=== PATIENT | female | born 1960 | race American Indian/Alaskan Native ===

== ENCOUNTER → 2018-06-30 | Outpatient (CLI) | payer OTHER | LOC: CIMAGING 11:07 | PROVIDERS: ATTEND Family Medicine | DX: Z12.31 Encounter for screening mammogram for malignant neoplasm of breast (principal) ==

== ENCOUNTER → 2018-11-19 | Outpatient (CLI) | payer OTHER | END | disposition home or self-care (01) | LOC: FIMAGING 14:10 | PROVIDERS: ATTEND Physician Assistant Medical | DX: M79.89 Other specified soft tissue disorders (principal); Z91.81 History of falling ==